=== PATIENT | male | born 1950 | race Caucasian/White ===

== ENCOUNTER 2022-04-17 12:30 | Outpatient (CLI) | payer SELFPAY | END 2022-04-17 23:59 | disposition left against medical advice (07) | LOC: EMS 12:30 | DX: S01.01XA Laceration without foreign body of scalp, initial encounter (principal); R41.82 Altered mental status, unspecified; W01.198A Fall on same level from slipping, tripping and stumbling with subsequent striking against other object, initial encounter; Y93.69 Activity, other involving other sports and athletics played as a team or group; Y92.212 Middle school as the place of occurrence of the external cause ==